=== PATIENT | male | born 1970 | race Caucasian/White ===

== ENCOUNTER 2018-08-10 18:18 | Emergency (ER) | payer BC ==
[2018-08-10 18:33] VITALS: BP 130/90
--- NOTE | 2018-08-10 18:49 | UC ---
Respiratory Complaint HPI - HPI Summary HPI Summary: The patient is a 47-year-old male with a one-week history of progressively worsening nasal congestion, postnasal drip, and cough. For the past 24 hours she has felt feverish and had chills. Patient is a diabetic. - History of Current Complaint Chief Complaint: UCGeneralIllness Stated Complaint: CONGESTION/COUGH Time Seen by Provider: 08/10/18 18:33 Hx Obtained From: Patient Onset/Duration: Sudden Onset, Lasting Weeks - 1 Timing: Constant Severity Initially: Mild Severity Currently: Moderate Pain Intensity: 4 Pain Scale Used: 0-10 Numeric Character: Cough: Nonproductive Aggravating Factors: Nothing Alleviating Factors: Nothing Associated Signs And Symptoms: Positive: Nasal Congestion, Sinus Discomfort Related History: Similar Episode/Dx as: - sinusitis - Allergies/Home Medications Allergies/Adverse Reactions: Allergies Allergy/AdvReac Type Severity Reaction Status Date / Time No Known Allergies Allergy Verified 08/26/15 15:53 Home Medications: Home Medications Ascorbic Acid [Vitamin C] 500 mg PO DAILY 08/10/18 [History Confirmed 08/10/18] Metformin ER (NF) 500 g PO DAILY 08/10/18 [History Confirmed 08/10/18] PMH/Surg Hx/FS Hx/Imm Hx Previously Healthy: Yes Endocrine History: Diabetes - Surgical History Surgical History: None - Family History Known Family History: Positive: Cardiac Disease, Hypertension - Social History Alcohol Use: Rare Substance Use Type: None Smoking Status (MU): Former Smoker Review of Systems All Other Systems Reviewed And Are Negative: Yes Constitutional: Positive: Negative Skin: Positive: Negative Eyes: Positive: Negative ENT: Positive: Nasal Discharge, Sinus Congestion, Sinus Pain/Tenderness Respiratory: Positive: Cough Cardiovascular: Positive: Negative Gastrointestinal: Positive: Negative Genitourinary: Positive: Negative Motor: Positive: Negative Neurovascular: Positive: Negative Musculoskeletal: Positive: Negative Neurological: Positive: Negative Psychological: Positive: Negative Physical Exam Triage Information Reviewed: Yes Appearance: Well-Appearing, No Pain Distress, Well-Nourished Vital Signs: Initial Vital Signs Temp 98.8 F 08/10/18 18:31 Pulse 108 08/10/18 18:31 Resp 18 08/10/18 18:31 BP 130/90 08/10/18 18:31 Pulse Ox 96 08/10/18 18:31 Vital Signs Reviewed: Yes Eyes: Positive: Conjunctiva Clear ENT: Positive: Hearing grossly normal, Pharynx normal, Nasal congestion, Nasal drainage, Hoarse voice, Sinus tenderness, Uvula midline. Negative: Tonsillar swelling, Tonsillar exudate, Muffled voice Neck: Positive: Supple, Nontender, No Lymphadenopathy Respiratory: Positive: Lungs clear, Normal breath sounds, No respiratory distress Cardiovascular Exam: Normal Neurological: Positive: Alert Psychological Exam: Normal Skin Exam: Normal UC Diagnostic Evaluation - Laboratory O2 Sat by Pulse Oximetry: 96 Respiratory Course/Dx - Differential Dx/Diagnosis Provider Diagnosis: Acute sinus infection Discharge - Sign-Out/Discharge Documenting (check all that apply): Patient Departure All imaging exams completed and their final reports reviewed: No Studies - Discharge Plan Condition: Stable Disposition: HOME Prescriptions: Amoxicillin PO (*) [Amoxicillin 875 MG (*)] 875 mg PO BID #20 tab Fluticasone NASAL SPRAY 50MCG* [Flonase NASAL SPRAY 50MCG*] 2 spray BOTH NARES BID #1 btl Patient Education Materials: Sinusitis (ED) Referrals: Cheri Mata PA [Primary Care Provider] - If Needed Additional Instructions: BP a little high recheck in AUG - Billing Disposition and Condition Condition: STABLE Disposition: Home
== END 2018-08-10 18:55 | disposition home or self-care (01) ==
LOC: UCCORT 18:18
DX: J01.90 Acute sinusitis, unspecified (principal); Z87.891 Personal history of nicotine dependence
CPT/HCPCS: 99212; G0463

== ENCOUNTER 2018-12-18 14:13 | Emergency (ER) | payer BC, OTHER ==
--- OUTSIDE RECORDS SUMMARY | 2018-12-18 15:15 | XMS REPORT | Continuity of Care Document ---
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 Payers Date Identification Numbers Payment Provider Subscriber Effective: 2011 Policy Number: [id number] [facility] Commercial Shakira Randall PayID: [id number] [address] [address] [place] [phone] Effective: 2009 Policy Number: [id number] [facility] Commercial hSakira Randall Expires: 2011 PayID: [id number] [address] [address] [place] [phone] Effective: 2005 Policy Number: [id number] [facility] Commercial Shakira Randall Expires: 2009 Group Number: [id number] [facility] [id number] PayID: [id number] [place] [address] Advance Directives Description No Information Available Problems Active Problems Provider Date Vitamin D deficiency Giovanni Jacome DO Onset: 02/21/2014 Psoriasis Giovanni Jacome DO Onset: 08/22/2013 Gastroesophageal reflux disease Giovanni Jacome DO Onset: 08/22/2013 Abnormal glucose level Giovanni Jacome DO Onset: 09/21/2014 Type II diabetes mellitus uncontrolled Giovanni Jacome DO Onset: 09/25/2015 Impotence of organic origin Giovanni Jacome DO Onset: 01/24/2016 Obstructive sleep apnea syndrome Giovanni Jacome DO Onset: 01/24/2016 Peptic reflux disease Onset: 03/08/2015 Family History Date Family Member(s) Observation Comments Father CAD Father Diabetes, Adult Mother Hypothyroidism Maternal Grandmother Diabetes, Adult Social History Type Date Description Comments Sex Unknown Marital Status Occupation Currently Working ETOH Use Occasionally consumes alcohol Tobacco Use Start: Unknown End: Patient is a former smoker Quit 2004, 20 pack Unknown year history Allergies, Adverse Reactions, Alerts Description No Known Drug Allergies Medications Active Medications SIG Qnty Indications Ordering Provider Date Metformin HCL ER Take One Tablet 30tabs E11.65 Radu Arteaga, 09/11/2017 (Osm) By Mouth Every DO 500mg Tablets Day ER 24HR Premium Blood use to test 100units E11.65 Radu Arteaga, 06/09/2017 Glucose Test Strips fasting blood DO sugar every Strips morning Lancets Micro Thin Use To Check 100units E11.65 Giovanni Jacome, 2016 33G Fasting Sugar DO Thin 33G Misc Every Morning Clobetasol apply to area 60gm L40.9 Radu Arteaga, 06/09/2017 Propionate twice a day DO 0.05% Cream Aspirin 1 by mouth every E11.65 Giovanni Jacome, 01/24/2016 81mg Tablets day DO Onetouch Ultra check fsbs every 1units E11.65 Giovanni Jacome, 09/25/2015 System in the morning DO W/Device Kit dx:E11.65 Zyrtec-D Allergy & 1 by mouth twice 60tabs J30.9 Giovanni Jacome, 2014 Congestion a day DO 5-120mg Tablets ER 12HR Fluticasone 2 sprays each 1units J30.9 Giovanni Jacome, 11/14/2014 Propionate nare every day DO 50mcg/Act Suspension Vitamin C 1 by mouth every Giovanni Jacome, 10/23/2014 1000mg day DO Tablets Vitamin D3 1 by mouth every E55.9 Giovanni Jacome, 10/23/2014 5000Unit day DO Chewtabs Omeprazole take one capsule 30caps K21.9 Radu Arteaga, 07/01/2007 20mg by mouth every DO Capsules DR day History Medications Azithromycin 1 by mouth 7tabs J20.9 Ayaz, 12/16/2016 - 500mg every day Giovanni, DO 12/23/2016 Tablets Benzonatate 1 by mouth 30caps J20.9 Ayaz, 12/16/2016 - 200mg three times a Giovanni, DO 12/26/2016 Capsules day Prednisone 1 by mouth 14tabs J20.9 Ayaz, 12/16/2016 - 20mg twice a day Giovanni, DO 12/23/2016 Tablets Oseltamivir 1 capsule by 10caps J11.1 Adolfo Cheri, 12/05/2016 - Phosphate mouth twice PA 12/16/2016 75mg daily for 5 Capsules days Skelaxin 1 by mouth 30tabs S39.012A Ayaz, 08/12/2016 - 800mg three times a Giovanni, DO 10/08/2016 Tablets day Ibuprofen 1 by mouth 90tabs S39.012A Ayaz, 08/12/2016 - 800mg three times a Giovanni, DO 10/08/2016 Tablets day with food Onetouch Delica Use To Check 100units E11.65 Ayaz, 05/20/2016 - Lancets Extra Fine Fasting Sugar Giovanni, DO 06/09/2017 33G Every Morning [facility] [place] [facility] Ultra Thin fsbs every in 100units E11.65 Ayaz, 09/25/2015 - Lancets the morning Giovanni, DO 05/20/2016 [facility] dx: E11.65 Cialis 1 by mouth 3tabs N52.9 Ayaz, 09/25/2015 - 20mg Tablets every 36 hours Giovanni, DO 12/07/2018 as needed Onetouch Ultra Blue Use To Test 100units E11.65 Ayaz, 09/25/2015 - Fasting Blood Giovanni, DO 06/09/2017 Strips Sugar Every Morning Fortamet Take One 30tabs E11.65 Ayaz, 09/25/2015 - 500mg Tablet By Giovanni, DO 09/11/2017 Tablets ER 24HR Mouth Every Day Ibuprofen 1 by mouth 90tabs 724.2 Ayaz, 12/07/2014 - 800mg three times a Giovanni, DO 01/24/2016 Tablets day with food Metaxalone 1 by mouth 28tabs 724.2 Ayaz, 12/07/2014 - 800mg four times a Giovanni, DO 03/22/2015 Tablets day Augmentin 1 by mouth 20tabs 473.8 Ayaz, 11/14/2014 - 500-125mg twice a day Giovanni, DO 03/22/2015 Tablets Tessalon 1 by mouth 30caps Ayaz, 10/31/2014 - 200mg three times a Giovanni, DO 03/22/2015 Capsules day Clobetasol apply to area 60units L40.9 Ayaz, 01/10/2013 - Propionate twice a day Giovanni, DO 06/09/2017 0.05% Cream 8 Hour Pain Relief 1 po bid Radu Arteaga, 04/10/2011 - DO 09/21/2014 650mg Tablets ER Immunizations CPT Code Status Date Vaccine Reaction Lot # [id number] Given 12/07/2018 Pneumococcal 23 Immunization [id number] Adult Or Immunosuppressed Patient 78051 Given 04/20/2018 Tdap (Adacel) Ages 7 And Im inj completed, Pt [id number] Above Only tolerated well 85272 Given 07/16/2009 Administration Swine Flu Vaccine H1N1 [id number] Given 12/01/2005 Tetanus And Diptheria Toxoids For Adult Use-preservative free Vital Signs Date Vital Result Comment 12/07/2018 8:37am Weight 249.00 lb Heart Rate 72 /min BP Systolic 132 mmHg BP Diastolic 70 mmHg Respiratory Rate 18 /min Height 71.5 inches 5'11.50"n1 BMI (Body Mass Index) 34.2 kg/m2 04/20/2018 8:27am Weight 265.00 lb Heart Rate 72 /min BP Systolic 120 mmHg BP Diastolic 78 mmHg Respiratory Rate 16 /min Height 71.5 inches 5'11.50"n1 BMI (Body Mass Index) 36.4 kg/m2 10/20/2017 8:37am Weight 271.00 lb Heart Rate 70 /min BP Systolic 122 mmHg BP Diastolic 70 mmHg Respiratory Rate 18 /min Height 71.5 inches 5'11.50"n1 BMI (Body Mass Index) 37.3 kg/m2 06/09/2017 8:12am Weight 277.00 lb Heart Rate 76 /min 72 Reg BP Systolic 150 mmHg BP Diastolic 90 mmHg BP Systolic Recheck 126 mmHg BP Diastolic Recheck 82 mmHg Respiratory Rate 18 /min Height 71.5 inches 5'11.50"n1 BMI (Body Mass Index) 38.1 kg/m2 02/05/2017 8:12am Weight 262.00 lb Heart Rate 74 /min 72 Reg BP Systolic 120 mmHg BP Diastolic 70 mmHg BP Systolic Recheck 120 mmHg BP Diastolic Recheck 78 mmHg Respiratory Rate 18 /min Height 71.5 inches 5'11.50" BMI (Body Mass Index) 36.0 kg/m2 12/16/2016 9:25am Body Temperature 99.5 F Weight 256.00 lb Heart Rate 88 /min BP Systolic 118 mmHg BP Diastolic 74 mmHg Respiratory Rate 18 /min Height 71.5 inches 5'11.50" (10/09/16) O2 % BldC Oximetry 94 % On room air BMI (Body Mass Index) 35.2 kg/m2 12/05/2016 2:31pm Body Temperature 101.3 F Weight 261.00 lb Heart Rate 94 /min BP Systolic 130 mmHg BP Diastolic 80 mmHg Respiratory Rate 19 /min Height 71.5 inches 5'11.50" (10/09/16) O2 % BldC Oximetry 9394 % Ra BMI (Body Mass Index) 35.9 kg/m2 10/09/2016 8:03am Weight 265.00 lb Heart Rate 66 /min 68 Reg BP Systolic 122 mmHg BP Diastolic 80 mmHg BP Systolic Recheck 118 mmHg BP Diastolic Recheck 78 mmHg Respiratory Rate 18 /min Height 71.5 inches 5'11.50" (10/09/16) BMI (Body Mass Index) 36.4 kg/m2 08/12/2016 2:40pm Weight 274.00 lb Heart Rate 72 /min BP Systolic 124 mmHg BP Diastolic 80 mmHg Respiratory Rate 18 /min Height 71.25 inches 5'11.25" BMI (Body Mass Index) 37.9 kg/m2 05/29/2016 8:03am Weight 271.00 lb Heart Rate 66 /min 72 Reg BP Systolic 110 mmHg BP Diastolic 80 mmHg BP Systolic Recheck 120 mmHg BP Diastolic Recheck 80 mmHg Respiratory Rate 18 /min Height 71.25 inches 5'11.25" BMI (Body Mass Index) 37.5 kg/m2 01/24/2016 1:46pm Weight 273.00 lb Heart Rate 78 /min 72 Reg BP Systolic 130 mmHg BP Diastolic 90 mmHg BP Systolic Recheck 120 mmHg BP Diastolic Recheck 80 mmHg Respiratory Rate 18 /min Height 71 inches 5'11" BMI (Body Mass Index) 38.1 kg/m2 09/25/2015 8:04am Weight 275.00 lb Heart Rate 72 /min 72 Reg BP Systolic 110 mmHg BP Diastolic 78 mmHg BP Systolic Recheck 120 mmHg BP Diastolic Recheck 82 mmHg Respiratory Rate 18 /min Height 71 inches 5'11" BMI (Body Mass Index) 38.4 kg/m2 03/22/2015 8:02am Weight 279.00 lb Heart Rate 72 /min 72 Reg BP Systolic 128 mmHg BP Diastolic 80 mmHg BP Systolic Recheck 120 mmHg BP Diastolic Recheck 80 mmHg Respiratory Rate 18 /min Height 70.75 inches 5'10.75" BMI (Body Mass Index) 39.2 kg/m2 12/07/2014 3:51pm Weight 275.00 lb Heart Rate 78 /min BP Systolic 112 mmHg BP Diastolic 70 mmHg Respiratory Rate 18 /min Height 70.75 inches 5'10.75" BMI (Body Mass Index) 38.6 kg/m2 11/14/2014 9:33am Body Temperature 97.9 F Weight 280.00 lb Heart Rate 78 /min BP Systolic 132 mmHg BP Diastolic 86 mmHg Respiratory Rate 24 /min Height 70.75 inches 5'10.75" O2 % BldC Oximetry 98 % Ra BMI (Body Mass Index) 39.3 kg/m2 10/23/2014 8:05am Weight 279.00 lb Heart Rate 78 /min BP Systolic 138 mmHg BP Diastolic 90 mmHg Respiratory Rate 18 /min Height 70.75 inches 5'10.75" BMI (Body Mass Index) 39.2 kg/m2 09/21/2014 8:04am Weight 281.00 lb Heart Rate 72 /min 72 Reg BP Systolic 118 mmHg BP Diastolic 70 mmHg BP Systolic Recheck 118 mmHg BP Diastolic Recheck 76 mmHg Respiratory Rate 18 /min Height 70.75 inches 5'10.75" BMI (Body Mass Index) 39.5 kg/m2 02/21/2014 3:06pm BP Systolic 118 mmHg BP Diastolic 78 mmHg 02/21/2014 3:06pm Weight 269.00 lb Heart Rate 78 /min 72 Reg BP Systolic 118 mmHg BP Diastolic 64 mmHg Respiratory Rate 18 /min Height 70.75 inches 5'10.75" Results Test Date Facility Test Result H/L Range Note Hemoglobin A1c 10/21/2018 [facility] Hemoglobin A1c 6.1 % High 4.1-5.9 Estimated Average Glucose Calc 128 mg/dL 71-140 [facility] 10/21/2018 [facility] Sodium 140 mmol/L 135- 146 1 Potassium 4.5 mmol/L 3.5-5.2 Chloride# 104 mmol/L 97-110 2 Carbon Dioxide 28 mmol/L 24-34 Glucose 114 mg/dL High 70-105 BUN 16 mg/dL 6-26 Creatinine 1.0 mg/dL 0.5-1.4 Calcium 10.2 mg/dL 8.5-10.2 Total Protein 6.6 g/dL 6.0-8.0 Albumin 4.5 g/dL 3.6-4.9 Globulin 2.1 g/dL 2.0-3.5 A/G Ratio 2.1 Ratio 1.0-2.2 Total Bilirubin 0.6 mg/dL 0.1-1.3 Alkaline Phosphatase 62 U/L 24-140 Alt 22 U/L 3-42 Ast 19 U/L 8-42 Anion Gap 8 mmol/L 5-15 3 Smita Egfr >60 >60 4 Non Smita Egfr >60 >60 5 Comprehensive Met Panel-[facility] 04/13/2018 [facility] Sodium 140 mmol/L 135- 146 6 Potassium 4.5 mmol/L 3.5-5.2 Chloride# 106 mmol/L 97-110 7 Carbon Dioxide 22 mmol/L Low 24-34 Glucose 112 mg/dL High 70-105 BUN 16 mg/dL 6-26 Creatinine 1.0 mg/dL 0.5-1.4 Calcium 9.7 mg/dL 8.5-10.2 Total Protein 6.7 g/dL 6.0-8.0 Albumin 4.3 g/dL 3.6-4.9 Globulin 2.4 g/dL 2.0-3.5 A/G Ratio 1.8 Ratio 1.0-2.2 Total Bilirubin 0.3 mg/dL 0.1-1.3 Alkaline Phosphatase 62 U/L 24-140 Alt 22 U/L 3-42 Ast 15 U/L 8-42 Smita Egfr >60 >60 8 Non Smita Egfr >60 >60 9 Anion Gap 12 mmol/L 5-15 10 [facility] A1[facility] 6.1 % High 4.1-5.9 Estimated Average Glucose Calc 128 mg/dL 71-140 Lipid 04/13/2018 [facility] Cholesterol 157 mg/dL 50-199 Triglycerides 134 mg/dL 30-200 HDL 40 mg/dL 29-71 11 Chol/ HDL Ratio 3.9 ratio Low 4.0-6.7 VLDL 27 mg/dL 2-29 LDL (Calc) 90 mg/dL 20-99 12 Basic (BMP) 10/15/2017 [facility] Sodium 143 mmol/L 135-146 13, 14 Potassium 5.2 mmol/L 3.5-5.2 Chloride# 107 mmol/L 97-110 15 Carbon Dioxide 30 mmol/L 24-34 Glucose 119 mg/dL High 70-105 BUN 13 mg/dL 6-26 Creatinine 1.0 mg/dL 0.5-1.4 Calcium 9.9 mg/dL 8.5-10.2 Non Smita Egfr >60 >60 16 Smita Egfr >60 >60 17 Anion Gap 6 mmol/L 5-15 18 Hemoglobin A1c 10/15/2017 [facility] A1c 6.2 % High 4.1-5.9 Estimated Average Glucose Calc 131 mg/dL 71-140 Laboratory test 10/15/2017 [facility] Vitamin D 25 37 ng/mL 30-100 19 finding Hydroxy Laboratory test 10/15/2017 [facility] Microalbumin, < 7.0 ug/ml 5.0-20.0 finding Random Urine Laboratory test 02/03/2017 [facility] Vit D,25 Hydroxy 52 ng/mL 31-100 finding CBC With Auto Diff 02/03/2017 [facility] WBC 5.8 K/uL 4.1-11.0 RBC 5.27 M/uL 4.60-6.10 Hemoglobin 14.7 gm/dL 13.5-18.0 Hematocrit 44.2 % 41.0-53.0 MCV 83.8 fL 80.0-97.0 MCH 28.0 pg 27.0-32.0 MCHC 33.3 g/dL 32.0-36.0 RDW 14.2 % 11.5-14.5 PLT Count 248 K/ul 140-400 Neutrophil 53.9 % 35.0-75.0 Lymphocyte 31.6 % 16.0-52.0 Monocyte 8.1 % 2.0-10.0 Eosinophil 5.7 % High 0.0-5.0 Basophil 0.7 % 0.0-4.0 Abs Neutrophils 3.1 K/uL 2.1-8.0 Abs Lymphocytes 1.8 K/uL 0.8-5.5 Abs Monocytes 0.5 K/uL 0.1-1.0 Abs Eosinophils 0.3 K/uL 0.0-0.5 Abs Basophils 0.0 K/uL 0.0-0.3 Laboratory test finding 02/03/2017 [facility] Magnesium 2.0 mg/dL 1.5-2.7 Basic (BMP) 02/03/2017 [facility] Sodium 140 mmol/L 135-146 20 Potassium 4.4 mmol/L 3.5-5.2 Chloride# 107 mmol/L 97-110 21 Carbon Dioxide 25 mmol/L 24-34 Glucose 118 mg/dL High 70-105 BUN 9 mg/dL 6-26 Creatinine 1.0 mg/dL 0.5-1.4 Calcium 9.7 mg/dL 8.5-10.2 Non Smita Egfr >60 >60 22 Smita Egfr >60 >60 23 Anion Gap 12 mmol/L 7-16 24 Hemoglobin A1c 02/03/2017 [facility] Hemoglobin A1c 6.1 % 4.1-6.5 Estimated Average Glucose Calc 128 71-140 Laboratory test 02/03/2017 [facility] Microalbumin, Random 5.7 ug/ml 0.0- 20.0 finding Urine Laboratory test 05/22/2016 [facility] Hemoglobin A1c 6.0 % 4.1-6.5 finding Basic (BMP) 05/22/2016 [facility] Sodium 138 mmol/L 134-142 Potassium 4.8 mmol/L 3.5-5.2 Chloride 103 mmol/L 97-109 Carbon Dioxide 29 mmol/L 24-34 Glucose 111 mg/dL High 70-105 BUN 10 mg/dL 6-26 Creatinine 0.9 mg/dL 0.5-1.4 Calcium 9.7 mg/dL 8.5-10.2 Anion Gap 11 mmol/L 6-14 Non Smita Egfr >60 >60 25 Smita Egfr >60 >60 26 Laboratory test finding 05/22/2016 [facility] Magnesium 1.9 mg/dL 1.5-2.7 Vit D,25 Hydroxy 50 ng/mL 31-100 Laboratory test 05/22/2016 [facility] Microalbumin, Random < 5.0 ug/ml 5.0- 20.0 finding Urine Laboratory test 09/18/2015 [facility] TSH 0.53 uIU/mL 0.35-4.94 finding Vitamin B12 479 pg/mL 180-914 CBC With Auto Diff 09/18/2015 [facility] WBC 5.3 K/uL 4.1-11.0 RBC 5.32 M/uL 4.60-6.10 Hemoglobin 15.1 gm/dL 13.5-18.0 Hematocrit 45.8 % 41.0-53.0 MCV 86.0 fL 80.0-97.0 MCH 28.4 pg 27.0-32.0 MCHC 33.0 g/dL 32.0-36.0 RDW 13.2 % 11.5-14.5 PLT Count 229 K/ul 140-400 Neutrophil 55.1 % 35.0-75.0 Lymphocyte 30.5 % 16.0-52.0 Monocyte 9.1 % 2.0-10.0 Eosinophil 4.1 % 0.0-5.0 Basophil 1.2 % 0.0-4.0 Abs Neutrophils 3.0 K/uL 2.1-8.0 Abs Lymphocytes 1.6 K/uL 0.8-5.5 Abmon 0.5 K/uL 0.1-1.0 Abs Eosinophils 0.2 K/uL 0.0-0.5 Abs Basophils 0.1 K/uL 0.0-0.3 Testosterone,Free & 09/18/2015 [facility] Testosterone Total 234 ng/dL Low 285-950 Total-Male Adult Male Sex Hormone Binding Globulin 26.0 nmol/L 13.3-89.5 Testosterone Free Adult Male 52 pg/mL 50-247 Testosterone Percent Free 2.2 % 1.8-3.2 Lipid 09/18/2015 [facility] Cholesterol 157 mg/dL 50-199 Triglycerides 138 mg/dL 30-150 HDL 39 mg/dL Low 40-71 27 Chol/ HDL Ratio 4.0 ratio 4.0-6.7 VLDL 28 mg/dL 2-29 LDL (Calc) 90 mg/dL 20-99 28 Laboratory test finding 09/18/2015 [facility] Vit D,25 Hydroxy 54 ng/mL 31- 100 Laboratory test finding 09/18/2015 [facility] Hemoglobin A1c 6.5 % 4.1-6.5 Basic (BMP) 09/18/2015 [facility] Sodium 135 mmol/L 134-142 Potassium 4.4 mmol/L 3.5-5.2 Chloride 101 mmol/L 97-109 Carbon Dioxide 29 mmol/L 24-34 Glucose 135 mg/dL High 70-105 BUN 12 mg/dL 6- Creatinine 1.0 mg/dL 0.5-1.4 Calcium 9.6 mg/dL 8.5-10.2 Anion Gap 9 mmol/L 6-14 Non Smita Egfr >60 >60 29 Smita Egfr >60 >60 30 Laboratory test finding 03/15/2015 [facility] Hemoglobin A1c 6.2 % 4.1-6.5 Basic (BMP) 03/15/2015 [facility] Sodium 138 mmol/L 134-142 Potassium 4.4 mmol/L 3.5-5.2 Chloride 103 mmol/L 97-109 Carbon Dioxide 29 mmol/L 24-34 Glucose 124 mg/dL High 70-105 BUN 11 mg/dL 6- Creatinine 1.0 mg/dL 0.5-1.4 Calcium 9.7 mg/dL 8.5-10.2 Anion Gap 10 mmol/L - Non Smita Egfr >60 >60 31 Smita Egfr >60 >60 32 Laboratory test finding 03/15/2015 [facility] Vit D,25 Hydroxy 34 ng/mL 31- 100 Lipid 03/15/2015 [facility] Cholesterol 154 mg/dL 50-199 Triglycerides 221 mg/dL High 30-150 HDL 34 mg/dL Low 40-71 33 Chol/ HDL Ratio 4.5 ratio 4.0-6.7 VLDL 44 mg/dL High 2-29 LDL (Calc) 76 mg/dL 20-99 34 Testosterone,Free & 03/15/2015 [facility] Testosterone Total 256 ng/dL Low 285-950 Total-Male Adult Male Sex Hormone Binding Globulin 24.2 nmol/L 13.3-89.5 Testosterone Free Adult Male 59 pg/mL 50-247 Testosterone Percent Free 2.3 % 1.8-3.2 CBC W/Automated Diff 10/19/2014 [facility] White Blood 7.7 K/uL 3.4-10.5 (315)- - Count Red Blood Count 5.23 M/uL 4.20-5.80 Hemoglobin 15.1 gm/dL 12.8-17.0 Hematocrit 45.3 % 38.0-48.0 Mean Cell Volume 86.6 fl 80.0-96.0 Mean Corpuscular HGB 28.9 pg 27.0-33.0 Mean Corpuscular HGB Conc 33.3 g/dL 31.7-36.0 Platelet Count 247 K/uL 150-400 Red Cell Distri Width SD 40.1 fl 36-51 Red Cell Distri Width %CV 12.9 % 11.6-15.8 Mean Platelet Volume 9.6 fL 6.6-10.6 Neut% 50.8 % 33.0-73.0 Lymph % 33.6 % 17.0-56.0 [place] % 8.5 % 0.0-10.0 Eo% 6.6 % High 0.0-5.0 Bas% 0.5 % 0.1-1.0 Neut# 3.90 K/uL 1.8-7.0 Lymph # 2.58 K/uL 1.8-7.0 [place] # 0.65 K/uL 0.0-0.8 Eos # 0.51 K/uL High 0.0-0.5 Baso # 0.04 K/uL Low 0.1-0.2 Laboratory test 10/19/2014 [facility] Troponin-I < 0.02 ng/mL 35 finding (315)- - Comprehensive 10/19/2014 [facility] Glucose 147 mg/dL High 74-106 Metabolic Panel (315)- - BUN 12 mg/dL 7-18 Creatinine 1.2 mg/dL 0.6-1.3 Glom Filtration Rate, Estimate >60 mL/min >60 If >60 mL/min >60 36 BUN/Creat 10.0 ratio Sodium 140 mmol/L 136-145 Potassium 3.6 mmol/L 3.5-5.1 Chloride 106 mmol/L 98-107 Carbon Dioxide 29 mmol/L 21-32 Anion Gap 5 mEq/L Low 8-16 Calcium 9.1 mg/dL 8.5-10.1 Total Protein 7.2 g/dL 6.4-8.2 Albumin 3.9 g/dL 3.4-5.0 Globulin 3.3 g/dL 1.9-4.3 Alb/Glob 1.2 ratio Bilirubin,Total 0.2 mg/dL 0.2-1.0 Sgot/Ast 21 U/L 15-37 SGPT/Alt 39 U/L 12-78 Alkaline Phosphatase 92 U/L 45-117 Laboratory test 10/19/2014 [facility] Troponin-I < 0.02 37 finding (315)- - ng/mL Laboratory test 08/22/2014 N2N/[facility]D Import Vitamin 18.1 ng/mL Low 30.0-1 38 finding D,25-Hydroxy 00.0 Anion Gap 9 mEq/L 8-16 BUN 11 mg/dL 7-18 BUN/Creat 9.1 ratio Calcium 9.1 mg/dL 8.5-10.1 Carbon Dioxide 29 mmol/L 21-32 Chloride 106 mmol/L 98-107 Creatinine 1.2 mg/dL 0.6-1.3 Glom Filtration Rate, Estimate >60 mL/min >60 Glucose 120 mg/dL High 74-106 Glycohemoglobin (A1c) 6.1 % 4.2-6.3 39 If >60 mL/min >60 40 Potassium 4.4 mmol/L 3.5-5.1 Sodium 140 mmol/L 136-145 eAG 128 mg/dL Laboratory test finding 02/14/2014 N2N/CCD Import % A1c 5.6 % 4.1-6.5 BUN 11.0 mg/dL 9.0-21.0 BUN/Creat Ratio 11.0 ratio Low 12.0-20.0 Calcium 9.7 mg/dL 8.7-10.5 Chloride 108.0 mmol/L High 98.0-107.0 Co2 25.0 mmol/L 22.0-30.0 Creatinine-Serum 1.0 mg/dL 0.8-1.5 Glucose 112.0 mg/dL High 75.0-110.0 Potasium 4.5 mmol/L 3.6-5.0 Sodium 142.0 mmil/L 137.0-145.0 Vitamin D 27.3 ng/mL Low 30.0-100.0 eGFR 87.5 Laboratory test finding 08/16/2013 N2N/CCD Import % A1c 6.2 % 4.1-6.5 BUN 14.0 mg/dL 9.0-21.0 BUN/Creat Ratio 11.7 ratio Low 12.0-20.0 Calcium 9.8 mg/dL 8.7-10.5 Chloride 107.0 mmol/L 98.0-107.0 Co2 26.0 mmol/L 22.0-30.0 Creatinine-Serum 1.2 mg/dL 0.8-1.5 Glucose 127.0 mg/dL High 75.0-110.0 Potasium 4.5 mmol/L 3.6-5.0 Sodium 142.0 mmil/L 137.0-145.0 Vitamin D 42.3 ng/mL 30.0-100.0 eGFR 71.3 Laboratory test finding 01/11/2013 N2N/CCD Import Cytology See Note 41 Laboratory test finding 01/10/2013 N2N/CCD Import Alb/Glob 1.3 ratio Albumin 4.2 g/dL 3.5-5.0 Alkaline Phosphatase 88 U/L 50-136 Anion Gap 11 mEq/L 8-16 BUN 9 mg/dL 5-23 BUN/Creat 8.1 ratio Bas% 0.3 % 0.1-1.0 Baso # 0.03 K/uL Low 0.1-0.2 Bilirubin,Total 0.3 mg/dL 0.2-1.2 Calcium 8.9 mg/dL 8.5-10.1 Carbon Dioxide 28 mEq/L 18-29 Chloride 106 mmol/L 98-107 Creatinine 1.1 mg/dL 0.5-1.4 Eo% 1.1 % 0.0-5.0 Eos # 0.12 K/uL 0.0-0.5 Globulin 3.2 g/dL 1.9-4.3 Glom Filtration Rate, Estimate >60 mL/min >60 Glucose 118 mg/dL High 76-115 Glycohemoglobin (A1c) 6.6 % High 4.8-6.5 42 Hematocrit 42.0 % 38.0-48.0 Hemoglobin 14.0 gm/dL 12.8-17.0 If >60 mL/min >60 43 Lymph # 2.11 K/uL 1.2-4.0 Lymph % 19.5 % 17.0-56.0 Mean Cell Volume 85.4 fl 80.0-96.0 Mean Corpuscular HGB 28.5 pg 27.0-33.0 Mean Corpuscular HGB Conc 33.3 g/dL 31.7-36.0 Mean Platelet Volume 9.5 fL 6.6-10.6 [place] # 0.77 K/uL High 0.0-0.6 [place] % 7.1 % 0.0-10.0 Neut# 7.78 K/uL High 1.8-7.0 Neut% 72.0 % 33.0-73.0 Platelet Count 253 K/uL 150-400 Potassium 3.8 mmol/L 3.5-5.1 Red Blood Count 4.92 M/uL 4.20-5.80 Red Cell Distri Width %CV 12.8 % 11.6-15.8 Red Cell Distri Width SD 39.3 fl 36-51 SGPT/Alt 33 U/L 30-65 Sgot/Ast 15 U/L Low 16-40 Sodium 141 mmol/L 136-145 Thyroid Stim Hormone 0.58 uIU/mL 0.49-4.67 Total Protein 7.4 g/dL 6.3-8.0 Vitamin D,25-Hydroxy 13.6 ng/mL Low 30.0-100.0 44 White Blood Count 10.8 K/uL High 3.4-10.5 eAG 143 mg/dL LDL Cholesterol Profile 01/10/2013 N2N/CCD Import Cholesterol 158 mg/dL 120-200 HDL Cholesterol 30 mg/dL Low 40-83 LDL-Cholesterol 93 mg/dL 62-129 Triglycerides 175 mg/dL High 16-150 Laboratory test 05/01/2011 N2N/CCD Import Culture Throat See Note 45 finding Laboratory test 04/10/2011 N2N/CCD Import Culture Throat See Note 46 finding Laboratory test 12/12/2010 N2N/CCD Import Anion Gap 6 mEq/L Low 8-16 finding BUN 11 mg/dL 5-23 BUN/Creat 10.0 Bas% 0.3 % 0.1-1.0 Baso # 0.04 K/uL Low 0.1-0.2 CK 95 U/L 26-190 47 Calcium 8.9 mg/dL 8.5-10.1 Carbon Dioxide 32 mEq/L 21-32 Chloride 105 mEq/L 98-107 Creatinine 1.1 mg/dL 0.5-1.4 Eo% 1.3 % 0.0-5.0 Eos # 0.17 K/uL 0.0-0.5 Glom Filtration Rate, Estimate >60 mL/min >60 Glucose 96 mg/dL 76-115 Hematocrit 44.2 % 38.0-48.0 Hemoglobin 15.0 gm/dL 12.8-17.0 If >60 mL/min >60 48 Lymph # 2.32 K/uL 1.2-4.0 Lymph % 18.4 % 17.0-56.0 Mean Cell Volume 83.6 fl 80.0-96.0 Mean Corpuscular HGB 28.4 pg 27.0-33.0 Mean Corpuscular HGB Conc 33.9 g/dL 31.7-36.0 Mean Platelet Volume 9.3 fL 6.6-10.6 [place] # 0.94 K/uL High 0.0-0.6 [place] % 7.5 % 0.0-10.0 Neut# 9.13 K/uL High 1.8-7.0 Neut% 72.5 % 33.0-73.0 Platelet Count 256 K/uL 150-400 Potassium 3.9 mEq/L 3.5-5.1 Red Blood Count 5.29 M/uL 4.20-5.80 Red Cell Distri Width %CV 13.2 % 11.6-15.8 Red Cell Distri Width SD 39.8 fl 36-51 Sodium 139 mEq/L 136-145 Troponin-I 0.1 ng/mL 0.0-0.6 49 Urine Bilirubin - Dipstick Negative Negative Urine Blood Negative Negative Urine Clarity Clear Clear Urine Color Yellow Yellow Urine Glucose - Dipstick Negative mg/dL Negative Urine Ketone Negative mg/dL Negative Urine Leuk Esterase Negative Negative Urine Nitrite - Dipstick Negative Negative Urine PH 7.0 6.5-7.5 Urine Protein - Dipstick Negative mg/dL Negative Urine Specific [place] <=1.005 Low 1.010-1.030 Urine Urobilinogen - Dipstick 0.2 E.U./dL 0.2-1.0 White Blood Count 12.6 K/uL High 3.4-10.5 Laboratory test 12/01/2005 N2N/CCD Import Helicobacter <0.9 U/mL 0.0- 0.8 50 finding Pylori, Igg 1 Updated reference range on new analyzer 2 Updated reference range on new analyzer 3 Updated Reference Range 4 Concerning GFR Guidelines for Americans: Normal function or mild renal disease, if clinically at risk: >/=60 mL/min Moderately decreased: 30-59 Severely decreased: 15-29 Renal failure: <15 5 Concerning GFR Guidelines: Normal function or mild renal disease, if clinically at risk: >/=60 mL/min Moderately decreased: 30-59 Severely decreased: 15-29 Renal failure: <15 Glomerular Filtration Rate (GFR) is estimated based on the MDRD equation, which assumes a steady state for creatinine as recommended by the National Kidney Disease Education Program in conjunction with the National Institutes of Health and the [employer] Kid[employer]. Clinical conditions in which it may be necessary to measure GFR by using clearance methods include extremes of age and body size, severe malnutrition or obesity, diseases of skeletal muscle, paraplegia or quadriplegia, vegetarian diet, rapidly changing kidney function, and calculation of the dose of potentially toxic drugs that are excreted by the kidneys. 6 Updated reference range on new analyzer 7 Updated reference range on new analyzer 8 Concerning GFR Guidelines for Americans: Normal function or mild renal disease, if clinically at risk: >/=60 mL/min Moderately decreased: 30-59 Severely decreased: 15-29 Renal failure: <15 9 Concerning GFR Guidelines: Normal function or mild renal disease, if clinically at risk: >/=60 mL/min Moderately decreased: 30-59 Severely decreased: 15-29 Renal failure: <15 Glomerular Filtration Rate (GFR) is estimated based on the MDRD equation, which assumes a steady state for creatinine as recommended by the National Kidney Disease Education Program in conjunction with the National Institutes of Health and the National Kidney Foundation. Clinical conditions in which it may be necessary to measure GFR by using clearance methods include extremes of age and body size, severe malnutrition or obesity, diseases of skeletal muscle, paraplegia or quadriplegia, vegetarian diet, rapidly changing kidney function, and calculation of the dose of potentially toxic drugs that are excreted by the kidneys. 10 Updated Reference Range 11 Per NCEP ATP III Guidelines: Results lower than 40 mg/dL are suggestive of increased risk for coronary artery disease. Results > or=to 60 mg/dL are considered a negative risk factor. 12 Per NCEP ATP III Guidelines: Normal Population <130 Patients with medical conditions: CHD/DM Optimal: <100 Borderline high: 130-159 High: 160-189 Very high: >189 13 SCHEDULE 1 WEEK PRIOR TO NEXT VISIT 14 Updated reference range on new analyzer 15 Updated reference range on new analyzer 16 Concerning GFR Guidelines: Normal function or mild renal disease, if clinically at risk: >/=60 mL/min Moderately decreased: 30-59 Severely decreased: 15-29 Renal failure: <15 Glomerular Filtration Rate (GFR) is estimated based on the MDRD equation, which assumes a steady state for creatinine as recommended by the National Kidney Disease Education Program in conjunction with the National Institutes of Health and the National Kidney Foundation. Clinical conditions in which it may be necessary to measure GFR by using clearance methods include extremes of age and body size, severe malnutrition or obesity, diseases of skeletal muscle, paraplegia or quadriplegia, vegetarian diet, rapidly changing kidney function, and calculation of the dose of potentially toxic drugs that are excreted by the kidneys. 17 Concerning GFR Guidelines for Americans: Normal function or mild renal disease, if clinically at risk: >/=60 mL/min Moderately decreased: 30-59 Severely decreased: 15-29 Renal failure: <15 18 Updated Reference Range 19 Clinical Guidelines for recommended serum 25(OH)Vitamin D Deficient at less than 20 ng/mL Insufficient at 20 to <30 ng/mL Sufficient at 30-100 ng/mL Toxicity at greater than 100 ng/mL 20 Updated reference range on new analyzer 21 Updated reference range on new analyzer 22 Concerning GFR Guidelines: Normal function or mild renal disease, if clinically at risk: >/=60 mL/min Moderately decreased: 30-59 Severely decreased: 15-29 Renal failure: <15 Glomerular Filtration Rate (GFR) is estimated based on the MDRD equation, which assumes a steady state for creatinine as recommended by the National Kidney Disease Education Program in conjunction with the National Institutes of Health and the National Kidney Foundation. Clinical conditions in which it may be necessary to measure GFR by using clearance methods include extremes of age and body size, severe malnutrition or obesity, diseases of skeletal muscle, paraplegia or quadriplegia, vegetarian diet, rapidly changing kidney function, and calculation of the dose of potentially toxic drugs that are excreted by the kidneys. 23 Concerning GFR Guidelines for Americans: Normal function or mild renal disease, if clinically at risk: >/=60 mL/min Moderately decreased: 30-59 Severely decreased: 15-29 Renal failure: <15 24 Updated reference range on new analyzer 25 Concerning GFR Guidelines: Normal function or mild renal disease, if clinically at risk: >/=60 mL/min Moderately decreased: 30-59 Severely decreased: 15-29 Renal failure: <15 Glomerular Filtration Rate (GFR) is estimated based on the MDRD equation, which assumes a steady state for creatinine as recommended by the National Kidney Disease Education Program in conjunction with the National Institutes of Health and the National Kidney Foundation. Clinical conditions in which it may be necessary to measure GFR by using clearance methods include extremes of age and body size, severe malnutrition or obesity, diseases of skeletal muscle, paraplegia or quadriplegia, vegetarian diet, rapidly changing kidney function, and calculation of the dose of potentially toxic drugs that are excreted by the kidneys. 26 Concerning GFR Guidelines for Americans: Normal function or mild renal disease, if clinically at risk: >/=60 mL/min Moderately decreased: 30-59 Severely decreased: 15-29 Renal failure: <15 27 Per NCEP ATP III Guidelines: Results lower than 40 mg/dL are suggestive of increased risk for coronary artery disease. Results > or=to 60 mg/dL are considered a negative risk factor. 28 Per NCEP ATP III Guidelines: Normal Population <130 Patients with medical conditions: CHD/DM Optimal: <100 Borderline high: 130-159 High: 160-189 Very high: >189 29 Concerning GFR Guidelines: Normal function or mild renal disease, if clinically at risk: >/=60 mL/min Moderately decreased: 30-59 Severely decreased: 15-29 Renal failure: <15 Glomerular Filtration Rate (GFR) is estimated based on the MDRD equation, which assumes a steady state for creatinine as recommended by the National Kidney Disease Education Program in conjunction with the National Institutes of Health and the National Kidney Foundation. Clinical conditions in which it may be necessary to measure GFR by using clearance methods include extremes of age and body size, severe malnutrition or obesity, diseases of skeletal muscle, paraplegia or quadriplegia, vegetarian diet, rapidly changing kidney function, and calculation of the dose of potentially toxic drugs that are excreted by the kidneys. 30 Concerning GFR Guidelines for Americans: Normal function or mild renal disease, if clinically at risk: >/=60 mL/min Moderately decreased: 30-59 Severely decreased: 15-29 Renal failure: <15 31 Concerning GFR Guidelines: Normal function or mild renal disease, if clinically at risk: >/=60 mL/min Moderately decreased: 30-59 Severely decreased: 15-29 Renal failure: <15 Glomerular Filtration Rate (GFR) is estimated based on the MDRD equation, which assumes a steady state for creatinine as recommended by the National Kidney Disease Education Program in conjunction with the National Institutes of Health and the National Kidney Foundation. Clinical conditions in which it may be necessary to measure GFR by using clearance methods include extremes of age and body size, severe malnutrition or obesity, diseases of skeletal muscle, paraplegia or quadriplegia, vegetarian diet, rapidly changing kidney function, and calculation of the dose of potentially toxic drugs that are excreted by the kidneys. 32 Concerning GFR Guidelines for Americans: Normal function or mild renal disease, if clinically at risk: >/=60 mL/min Moderately decreased: 30-59 Severely decreased: 15-29 Renal failure: <15 33 Per NCEP ATP III Guidelines: Results lower than 40 mg/dL are suggestive of increased risk for coronary artery disease. Results > or=to 60 mg/dL are considered a negative risk factor. 34 Per NCEP ATP III Guidelines: Normal Population <130 Patients with medical conditions: CHD/DM Optimal: <100 Borderline high: 130-159 High: 160-189 Very high: >189 35 0.0 - 0.045 ng/mL: Normal 0.046 - 0.5 ng/mL: Suggestive 0.6 - 1.5 ng/mL: Consistent 36 Note: Persistent reduction for 3 months or more in an eGFR <60 mL/min/1.73 m2 defines CKD. Patients with eGFR values >/=60 mL/min/1.73 m2 may also have CKD if evidence of persistent proteinuria is present. The original MDRD equation for estimated GFR is not valid for patients less than 18 years of age. Additional information may be found at www.kdoqi.org. 37 0.0 - 0.045 ng/mL: Normal 0.046 - 0.5 ng/mL: Suggestive 0.6 - 1.5 ng/mL: Consistent 38 Vitamin D deficiency has been defined by the [place] [employer] and an Endocrine Society practice guideline as a level of serum 25-OH vitamin D less than 20 ng/mL (1,2). The Endocrine Society went on to further define vitamin D insufficiency as a level between 21 and 29 ng/mL (2). 1. IOM ([place] [employer]). 2010. Dietary reference intakes for calcium and D. [place]: The National Academies Press. 2. Sylvia MF, Tami [place], Hong WHITLOCK, et al. Evaluation, treatment, and prevention of vitamin D deficiency: an Endocrine Society clinical practice guideline. JCEM. 2010; 96(7):1911-30. Performed at: RN - [facility] [address] [id number] Director Presales: Daniella Quiros MD, Phone: [phone] 39 Elevated levels of HbA1c suggest the need for more aggressive treatment of glycemia. The [place] Diabetes Association recommends that a primary goal of therapy should be a HbA1c of <7% and that physicians should re-evaluate the treatment regimen in patients with HbA1c values consistently >8%. 40 Note: Persistent reduction for 3 months or more in an eGFR <60 mL/min/1.73 m2 defines CKD. Patients with eGFR values >/=60 mL/min/1.73 m2 may also have CKD if evidence of persistent proteinuria is present. The original MDRD equation for estimated GFR is not valid for patients less than 18 years of age. Additional information may be found at www.kdoqi.org. 41 [facility] [address] [place] [address], [address] [place] [address] CYTOLOGY REPORT Name: Gael Randall : 1970 (Age: 42) Sex:M Location: [facility] Med. Rec. # [id number] Date Collected: 01/11/2013 Billing #: [id number] Date Received: 01/11/2013 Requisition #: [id number] Physician(s): GIOVANNI JACOME DO Source of Specimen: URINE Clinical Information 599.99 Gross Description Received 30 cc. of cloudy yellow fluid. Final Diagnosis NO MALIGNANT CELLS IDENTIFIED. ACUTE INFLAMMATION AND RED BLOOD CELLS. Electronic Signature Justen Wills MD Reported: 01/12/2013 Also seen by: LAYLA Cuellar ([facility]) [facility] ICD-9 Code(s) 42 A1c value between 5.7% and 6.4% is considered at increased risk for diabetes. A1c value greater than 6.5 % is considered essentially diagnostic for Type II diabetes. Current guidelines recommend a treatment goal of <7% for diabetic patients. This method will measure glycosylated hemoglobin variants, HbS, HbG , HbH, HbWayne, HbC, HbE, etc. Other hemoglobin- opathies may give incorrect results with this test. 43 Note: Persistent reduction for 3 months or more in an eGFR <60 mL/min/1.73 m2 defines CKD. Patients with eGFR values >/=60 mL/min/1.73 m2 may also have CKD if evidence of persistent proteinuria is present. The original MDRD equation for estimated GFR is not valid for patients less than 18 years of age. Additional information may be found at www.kdoqi.org. 44 Vitamin D deficiency has been defined by the [place] [employer] and an Endocrine Society practice guideline as a level of serum 25-OH vitamin D less than 20 ng/mL (1,2). The Endocrine Society went on to further define vitamin D insufficiency as a level between 21 and 29 ng/mL (2). 1. IOM ([place] [employer]). 2010. Dietary reference intakes for calcium and D. [place]: The National Academies Press. 2. Sylvia MF, [place], Hong WHITLOCK, et al. Evaluation, treatment, and prevention of vitamin D deficiency: an Endocrine Society clinical practice guideline. JCEM. 2010; 96(7):1911-30. Performed at: RN - [facility] [address] [id number] Director Presales: Daniella Quiros MD, Phone: [phone] 45 Organism 1 ! BETA STREPTOCOCCUS GROUP A QUANTITY ! MANY RECOMMENDED THERAPY : ! PENICILLIN OR AMPICILLIN. ALTERNATIVE THERAPY: ! ERYTHROMYCIN MAY BE USED IN PENICILLIN ALLERGIC ! INDIVIDUALS 46 Organism 1 ! BETA STREPTOCOCCUS GROUP A QUANTITY ! MODERATE RECOMMENDED THERAPY: ! PENICILLIN OR AMPICILLIN. ALTERNATIVE THERAPY: ! ERYTHROMYCIN MAY BE USED IN PENICILLIN ALLERGIC ! INDIVIDUALS 47 QUERY: @[facility] Pat ID: QUERY: @[facility] Req #: 48 Note: Persistent reduction for 3 months or more in an eGFR <60 mL/min/1.73 m2 defines CKD. Patients with eGFR values >/=60 mL/min/1.73 m2 may also have CKD if evidence of persistent proteinuria is present. The original MDRD equation for estimated GFR is not valid for patients less than 18 years of age. Additional information may be found at www.kdoqi.org. 49 0 - 0.6 NG/ML: NO EVIDENCE OF MYOCARDIAL INJURY 0.7 - 1.5 NG/ML: MILD ELEVATION, SUGGESTING POSSIBLE MYOCARDIAL INJURY > 1.5 NG/ML: CONSISTENT WITH MYOCARDIAL INJURY 50 Negative <0.9 Indeterminate 0.9 - 1.0 Positive >1.0 Procedures Date Code Description Status 12/07/2018 32777 Brief Emotional/Behav Assessment W/ Scoring Doc Per Completed Standard Inst 12/16/2016 33704 Measure Blood Oxygen Level Single Determination Completed 12/05/2016 12705 Measure Blood Oxygen Level Single Determination Completed 12/07/2014 39915 Omt 1-2 Body Regions Completed 11/14/2014 83467 Spirometry /PFT W/O Bronchodialator Completed 12/07/2010 00694 Measure Blood Oxygen Level Single Determination Completed 04/26/2008 78809 Omt 1-2 Body Regions Completed 01/01/2007 56012 Omt 1-2 Body Regions Completed 12/01/2005 82095 Remove Impacted Cerumen Requiring Instrumentation Completed Encounters Type Date Location Provider Dx Diagnosis Office Visit 04/20/2018 [facility] Cheri Mata, E11.65 Type 2 diabetes 8:30a PA mellitus with hyperglycemia K21.9 Gastro-esophageal reflux disease without esophagitis G47.33 Obstructive sleep apnea (adult) (pediatric) L40.9 Psoriasis, unspecified N52.9 Male erectile dysfunction, unspecified Z23 Encounter for immunization Z68.36 Body mass index (BMI) 36.0-36.9, adult Office Visit 10/20/2017 8:30a [facility] Cheri Mata PA E11.65 Type 2 diabetes mellitus with hyperglycemia K21.9 Gastro-esophageal reflux disease without esophagitis L40.9 Psoriasis, unspecified N52.9 Male erectile dysfunction, unspecified G47.33 Obstructive sleep apnea (adult) (pediatric) Z68.37 Body mass index (BMI) 37.0-37.9, adult Office Visit 06/09/2017 8:15a [facility] Giovanni Jacome DO E11.65 Type 2 diabetes mellitus with hyperglycemia K21.9 Gastro-esophageal reflux disease without esophagitis E55.9 Vitamin D deficiency, unspecified L40.9 Psoriasis, unspecified N52.9 Male erectile dysfunction, unspecified G47.33 Obstructive sleep apnea (adult) (pediatric) J30.9 Allergic rhinitis, unspecified Office Visit 02/05/2017 8:15a [facility] Giovanni Jacome DO E11.65 Type 2 diabetes mellitus with hyperglycemia K21.9 Gastro-esophageal reflux disease without esophagitis E55.9 Vitamin D deficiency, unspecified L40.9 Psoriasis, unspecified N52.9 Male erectile dysfunction, unspecified G47.33 Obstructive sleep apnea (adult) (pediatric) Office Visit 12/16/2016 9:30a [facility] Giovanni Jacome DO J20.9 Acute bronchitis, unspecified Z68.35 Body mass index (BMI) 35.0-35.9, adult Office Visit 12/05/2016 2:30p [facility] Cheri Mata PA J11.1 Flu due to unidentified influenza virus w oth resp manifest Office Visit 10/09/2016 8:00a [facility] Giovanni Jacome, E11.65 Type 2 diabetes mellitus DO with hyperglycemia K21.9 Gastro-esophageal reflux disease without esophagitis L40.9 Psoriasis, unspecified N52.9 Male erectile dysfunction, unspecified G47.33 Obstructive sleep apnea (adult) (pediatric) E55.9 Vitamin D deficiency, unspecified Office Visit 08/12/2016 2:30p [facility] Giovanni Jacome, S39.012A Strain of muscle, DO fascia and tendon of lower back, init Office Visit 05/29/2016 8:00a [facility] Giovanni Jacome, E11.65 Type 2 diabetes DO mellitus with hyperglycemia K21.9 Gastro-esophageal reflux disease without esophagitis L40.9 Psoriasis, unspecified N52.9 Male erectile dysfunction, unspecified G47.33 Obstructive sleep apnea (adult) (pediatric) E55.9 Vitamin D deficiency, unspecified Office Visit 01/24/2016 1:45p [facility] Giovanni Jacome DO E11.65 Type 2 diabetes mellitus with hyperglycemia K21.9 Gastro-esophageal reflux disease without esophagitis L40.9 Psoriasis, unspecified N52.9 Male erectile dysfunction, unspecified E55.9 Vitamin D deficiency, unspecified G47.33 Obstructive sleep apnea (adult) (pediatric) Office Visit 09/25/2015 8:00a [facility] Giovanni Jacome DO E11.65 Type 2 diabetes mellitus with hyperglycemia K21.9 Gastro-esophageal reflux disease without esophagitis L40.9 Psoriasis, unspecified N52.9 Male erectile dysfunction, unspecified E55.9 Vitamin D deficiency, unspecified R53.83 Other fatigue Office Visit 03/22/2015 8:00a [facility] AyazElzbieta piñas, DO 790.29 Other Abnormal Glucose 268.9 Vitamin D Deficiency Unspec 607.84 Impotence Organic Origin 530.81 Esophageal Reflux 696.1 Psoriasis Other Office Visit 12/07/2014 4:00p [facility] Elzbieta Jacomes, DO 724.2 Lumbago Office Visit 11/14/2014 9:30a [facility] AyazElzbieta piñas, DO 786.2 Cough 473.8 Sinusitis Chronic Other Office Visit 10/23/2014 8:00a [facility] AyazMianGiovanni, DO 786.59 Pain Chest Other 465.9 URI Upper Respiratory Infections Acute Unspec Sites Office Visit 09/21/2014 8:00a [facility] AyazMianGiovanni, DO 530.81 Esophageal Reflux 696.1 Psoriasis Other 790.29 Other Abnormal Glucose 268.9 Vitamin D Deficiency Unspec Plan of Treatment Future Appointment(s):06/03/2019 7:40 am - Schedule, Laboratory at [facility]2018 8:00 am - Cheri Mata, PA at [facility]12/07/2018 - Cheri Mata, PAE11.65 Type 2 diabetes mellitus with hyperglycemiaNew Labs:Hemoglobin A1c, Scheduled: 06/03/19Lipid, Scheduled: 06/03/19Comprehensive Met Panel-[facility], Scheduled: 06/03/19Comments:Excellent control - if A1C lower next visit consider d/c metforminDiscussed does not need to check sugars at home daily unless feeling offCall with questions/concernsFollow up:6 months labs 1 week uuiwmP97.9 Gastro-esophageal reflux disease without esophagitisComments:Good control. Continue current medicine.G47.33 Obstructive sleep apnea (adult) ( pediatric)Comments:Uses APAP at [id number] Encounter for [id number] Body mass index (BMI) 34.0-34.9, adultComments:Congrats on weight loss! Continue diet changes, exercise to help with continued weight loss
[2018-12-18 15:26] VITALS: BP 125/72
--- NOTE | 2018-12-18 16:05 | UC ---
Lower Extremity/Ankle HPI - HPI Summary HPI Summary: 48 yo WM p/w s/p twisted ankle, twisted it while carrying a case of red bull while at work and as he was coming down from his truck twisted his ankle, able to walk and bear weight - History of Current Complaint Chief Complaint: UCLowerExtremity Stated Complaint: RIGHT ANKLE INJURY (WC) Time Seen by Provider: 12/18/18 15:22 Hx Obtained From: Patient Onset/Duration: Sudden Onset Severity Initially: Moderate Severity Currently: Moderate Pain Intensity: 2 - Allergies/Home Medications Allergies/Adverse Reactions: Allergies Allergy/AdvReac Type Severity Reaction Status Date / Time No Known Allergies Allergy Verified 12/18/18 15:21 Home Medications: Home Medications Omeprazole 20 mg PO DAILY 12/18/18 [History Confirmed 12/18/18] PMH/Surg Hx/FS Hx/Imm Hx - Surgical History Surgical History: None - Family History Known Family History: Positive: Cardiac Disease, Hypertension - Social History Alcohol Use: None Substance Use Type: None Smoking Status (MU): Former Smoker Review of Systems All Other Systems Reviewed And Are Negative: Yes - Comments Additional Review of Systems Comments: Constitutional: Negative Eyes: Negative ENT: Negative Cardiovascular: Negative Respiratory: Negative Gastrointestinal: Negative Genitourinary: Negative Musculoskeletal: right ankle injury Skin: Negative Neurological: Negative Psychological: Normal Physical Exam - Summary Physical Exam Summary: Appearance: Positive: No Pain Distress Skin: Positive: Warm Head/Face: Positive: Normal Head/Face Inspection Eyes: Positive: Normal ENT: Positive: Normal ENT inspection Neck: Positive: Supple Respiratory/Lung Sounds: Positive: Clear to Auscultation. Cardiovascular: Positive: Normal, RRR, S1, S2 Abdomen : soft, NT/ND Musculoskeletal: Positive: mild-moderate right ankle swelling, ROM intact, TTP, NVI Neurological: Positive: CN Intact II-III Vital Signs: Initial Vital Signs Temp 36.5 C 12/18/18 15:22 Pulse 73 12/18/18 15:22 Resp 16 12/18/18 15:22 BP 125/72 12/18/18 15:22 Pulse Ox 97 12/18/18 15:22 Lower Extremity Course/Dx - Course Course Of Treatment: XR of right ankle-OLD medial malleolus avulsion fx, healed, NO NEW fx VAISHALI wrap, ankle splint, RICE, NSAIDS - Differential Dx/Diagnosis Provider Diagnosis: Moderate ankle sprain Discharge - Sign-Out/Discharge Documenting (check all that apply): Patient Departure All imaging exams completed and their final reports reviewed: Yes - Discharge Plan Condition: Stable Disposition: HOME Patient Education Materials: Ankle Sprain (ED) Referrals: Cheri Mata PA [Primary Care Provider] - - Billing Disposition and Condition Condition: STABLE Disposition: Home
--- NOTE | 2018-12-20 13:03 | UC ---
- Progress Note Progress Note: Pt presents requesting a note to return to work Pt was not taken out of work will write note Course/Dx - Diagnoses Provider Diagnoses: Moderate ankle sprain Discharge - Sign-Out/Discharge Documenting (check all that apply): Post-Discharge Follow Up All imaging exams completed and their final reports reviewed: Yes - Discharge Plan Condition: Stable Disposition: HOME Patient Education Materials: Ankle Sprain (ED) Forms: *Work Release Referrals: Cheri Mata PA [Primary Care Provider] - - Billing Disposition and Condition Condition: STABLE Disposition: Home
== END 2018-12-18 16:18 | disposition home or self-care (01) ==
LOC: UCCORT 14:13
DX: S93.401A Sprain of unspecified ligament of right ankle, initial encounter (principal); Z87.891 Personal history of nicotine dependence; Z87.828 Personal history of other (healed) physical injury and trauma; X50.0XXA Overexertion from strenuous movement or load, initial encounter; Y92.9 Unspecified place or not applicable
CPT/HCPCS: 99213; G0463